=== PATIENT | female | born 1980 | race Caucasian/White ===

== ENCOUNTER 2017-04-10 00:15 | Emergency (ER) | payer OTHER ==
--- NOTE | 2017-04-10 01:04 | ERNOTE ---
Lower Extremity HPI - Narrative Date of Service: 04/10/17 - General Lower Extremities Pain: leg: left, ankle: left Source: patient - Immun/Allergies/Home Medications Immunizations: IMMUNIZATION HX Immunizations Up to Date Yes Allergies/Adverse Reactions: Allergies Allergy/AdvReac Type Severity Reaction Status Date / Time cefdinir AdvReac Other Verified 11/21/14 06:23 tramadol AdvReac Other Verified 11/21/14 06:23 Home Medications: HOME MEDICATIONS Omeprazole [Prilosec] 20 mg PO DAILY 11/21/14 [Last Taken 11/20/14] Citalopram Hydrobromide [Citalopram HBr] 20 mg PO DAILY 04/10/17 [Last Taken Unknown] Gabapentin 300 mg PO DAILY 04/10/17 [Last Taken Unknown] Ibuprofen [Motrin] 800 mg PO BID 04/10/17 [Last Taken Unknown] Minocycline HCl 100 mg PO BID 04/10/17 [Last Taken Unknown] risperiDONE [Risperdal] 2 mg PO DAILY 04/10/17 [Last Taken Unknown] - History of Present Illness Narrative: STATES SWELLING OF LEFT ANKLE AND FOOT AND LOWER LEG FOR SEVERAL DAYS . NO KNOWN INJURY. SHE HAS HAD PAST SURGERY TO HER LEFT ANKLE IN SEP 2016 AND TO LEFT LOWER TIBIAL FOR FRACTURE. SHE ALLUDES TO SOME CHRONIC SWELLING "OFF AND ON " BUT SAYS IT HAS BEEN SWOLLEN FOR AT LEAST A WEEK NOW. SHE DOES NOT WORK AND HAS KNOWN TRAUMA OR UNUSUAL ACTIVITY. SHE DENIES HX. OF DVT. Review of Systems - Review of Systems Constitutional: Present: See HPI EYE: Present: no symptoms reported ENT: Present: no symptoms reported Respiratory: Present: no symptoms reported Cardiology: Present: no symptoms reported Gastrointestinal/Abdominal: Present: no symptoms reported Genitourinary: Present: no symptoms reported Musculoskeletal: Present: See HPI, joint pain, joint swelling Skin: Present: no symptoms reported Neurological: Present: no symptoms reported Endocrine: Present: no symptoms reported Hematologic/Lymphatic: Present: no symptoms reported Psych: Present: anxiety, depressed All Other Systems: All systems neg except as marked - Patient's Past Medical History Patient History - Medical: Anxiety, Bipolar, Depression, GERD, Obesity, Other Patient History - Cardiac/Respiratory: Bronchitis Patient History - Cancer: No Hx of Cancer Patient History - Surgical Procedures: Cholecystectomy, Tubal Ligation, T & A, Other, Orthopedic Patient History - Other: None LMP (females 10-50): other - Social History Living Situations: significant other Abuse History: No History of abuse Psych History: Hx of Anxiety, Hx of Depression, Hx of Bipolar Disorder Smoking Status: Current every day smoker Have you smoked in the past 12 months: Yes Do you dip or chew tobacco: No Alcohol Use: none Drug Use: none - Immunizations Immunizations Up to Date: Yes Physical Exam - Physical Exam General Appearance: Present: wd/wn, alert, no apparent distress Extremity Exam: Present: other - PT WITH SWELLING OF LEFT LOWER LEG INTO ANKLE WITH NO DISCOLORATION. NO PITTING . SHE C/O MILD CALF PAIN WITH GENTLE SQUEEZE. SHE IS ALSO TENDER TO LATERAL MALLEOLUS . NORMAL DISTAL PULSES AND REFILL AND SENSATION. THE FOOT ANKLE AND LOWER LEFT LEG IS NOT HOT TO TOUCH. Neurological Exam: Present: alert, oriented Skin Exam: Present: normal color, warm/dry ED Progress - Results and Orders Patient's Lab Results:: I have reviewed the patient's lab results. Results and Orders: D DIMER IS SL. ELEVATED. - Vital Signs Patient's Vital Signs:: I have reviewed the patient's vital signs. Vital Signs: Vital Signs 04/10/17 00:23 Temperature 36.7 C Pulse Rate 84 Respiratory 16 Rate Blood Pressure 131/82 O2 Sat by Pulse 98 Oximetry - CT/Ultrasound CT/Ultrasound Narrative: VENOUS DOPPLER ULTRASOUND OF LEFT LOWER LEG = NO DVT. - Progress/Reassessment Chief Complaint: Lower Extremity Pain/ Injury Progress:: Unchanged Departure Clinical Impression: Swelling of left lower extremity - Departure Disposition: Home Follow Up Needed Instructions: Edema, [id number] Additional Instructions: THE TESTS HERE SHOW NO ABNORMALITY TO EXPLAIN YOUR SWELLING. TRY ELEVATION AND WEARING OF COMPRESSION HOSE. RECHECK WITH YOUR FAMILY DOCTOR AND /OR YOUR ORTHOPEDIC DR. ON WEDNESDAY. Referrals: Abdiel Brooks DO [Primary Care Provider] -
--- OUTSIDE RECORDS SUMMARY | 2017-04-10 01:23 | XMS REPORT | Continuity of Care Document ---
:1980 Author Organization [facility] ([facility]) Address [address] [place] [address] Phone [phone] Care Team Providers Name Role Phone Abdiel Brooks Primary Care Provider [phone] Source Comments This disclosure is being made pursuant to the Care Everywhere program, applicable federal and state laws, and may not contain all informaitonavailable regarding this patient.[facility] ([facility]) Active Allergies and Adverse Reactions Allergen Noted Date Severity Reactions Comments Tramadol 08/21/2016 Rash Current Medications Prescription Sig. Disp. Refills Start Date End Date Status buPROPion (WELLBUTRIN TK 1 T PO QD 5 07/31/2016 Active XL) 150 mg extended release tablet 24 hour citalopram 40 mg tablet TK 1 T PO QD 5 07/31/2016 Active minocycline 100 mg TK 1 C PO BID 5 08/02/2016 Active capsule omeprazole 40 mg TK 1 C PO ONCE 5 07/31/2016 Active enteric coated capsule DAILY BEFORE A MEAL FOR 30 DAYS docusate (COLACE) 100 Take 1 capsule 60 capsule 1 09/25/2016 Active mg capsule (100 mg total) by mouth 2 times daily. aspirin 81 mg EC tablet Take 2 tablets 30 tablet 0 09/25/2016 Active (162 mg total) by mouth daily. HYDROcodone-acetaminoph Take 1-2 tablets 60 tablet 0 11/04/2016 Active en 5-325 mg per tablet by mouth every 6 hours as needed for Pain. NYSTOP 100,000 unit/g 0 10/14/2016 Active powder triamcinolone 0.1 % APPLY TWICE A 2 11/10/2016 Active cream DAY TO BODY FOR 3 TO 4 WEEKS Active Problems Not on file Social History Tobacco Use Types Packs/Day Years Used Date Current Every Day Smoker 2 20 Smokeless Tobacco: Never Used Tobacco Cessation:Ready to Quit: No Comments: Alcohol Use Drinks/Week oz/Week Comments No Last Filed Vital Signs Vital Sign Reading Time Taken Blood Pressure 116/58 09/25/2016 3:45 PM EVENTS MANAGER Pulse 82 09/25/2016 10:46 AM EVENTS MANAGER Temperature 37 C (98.6 F) 09/25/2016 2:33 PM EVENTS MANAGER Respiratory Rate 16 09/25/2016 3:15 PM EVENTS MANAGER Height 1.727 m (5' 8") 08/21/2016 2:45 PM CDT Weight 115.1 kg (253 lb 12 oz) 09/25/2016 10:46 AM EVENTS MANAGER Body Mass Index 38.59 09/25/2016 10:46 AM EVENTS MANAGER Oxygen Saturation 100% 09/25/2016 3:45 PM EVENTS MANAGER Plan of Care Health Maintenance Due Date Last Done Comments Hepatitis B Vaccine (1 of 3 - Primary Series) 1980 Tdap Vaccine 1992 Lipid Disorder Screening 1999 MMR Vaccine 1999 Td Vaccine 1999 Varicella Vaccine (1 of 2 - Adult - No Evidence of 1999 Immunity) Pneumococcal Vaccine (1 of 1 - PPSV23) 2000 Cervical Cancer Screening 2011 Influenza Vaccine: Seasonal (Season Ended) 2017 Results from Last 3 Months Not on file
[2017-04-10 04:56] VITALS: BP 113/63
== END 2017-04-10 03:34 | disposition home or self-care (01) ==
LOC: ER 00:15
DX: M79.89 Other specified soft tissue disorders (principal); F41.8 Other specified anxiety disorders; F31.70 Bipolar disorder, currently in remission, most recent episode unspecified; K21.9 Gastro-esophageal reflux disease without esophagitis; Z72.0 Tobacco use